=== PATIENT | male | born 1995 | race Caucasian/White ===

== ENCOUNTER 2017-07-05 16:34 | Emergency (ER) | payer SELFPAY ==
[2017-07-05 17:20] VITALS: BP 109/62
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
[2017-07-05] MEDS ORDERED: Cyclobenzaprine TAB* 10 MG PO ONE (19:24)
== END 2017-07-05 19:50 | disposition home or self-care (01) ==
LOC: UCEAST 16:34
DX: S29.012A Strain of muscle and tendon of back wall of thorax, initial encounter (principal); V49.09XA Driver injured in collision with other motor vehicles in nontraffic accident, initial encounter; Y92.410 Unspecified street and highway as the place of occurrence of the external cause
CPT/HCPCS: 72070; 99212; A9270-GY; G0463

== ENCOUNTER 2017-07-09 17:56 | Emergency (ER) | payer SELFPAY ==
--- NOTE | 2017-07-09 21:19 | RAD ---
INDICATION: Low back pain. COMPARISON: There are no prior studies available for comparison. TECHNIQUE: 5 views of the lumbar spine were obtained including lateral, oblique, AP and a coned-down lateral view of the lumbar sacral junction. FINDINGS: There is a mild lumbar scoliosis convex toward the left side. The vertebra are otherwise in normal alignment. Disc spaces appear maintained. IMPRESSION: MILD SCOLIOSIS, OTHERWISE UNREMARKABLE STUDY.
[2017-07-09] MEDS ORDERED: Dexamethasone TAB* 4 MG PO ONE (21:31)
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
[2017-07-09 21:45] VITALS: BP 130/70
== END 2017-07-09 21:44 | disposition home or self-care (01) ==
LOC: ED 17:56
DX: M54.6 Pain in thoracic spine (principal); M54.5 Low back pain; R20.2 Paresthesia of skin; Z88.1 Allergy status to other antibiotic agents
CPT/HCPCS: 72110; 99282; J8540

== ENCOUNTER 2018-01-16 12:53 | Emergency (ER) | payer SELFPAY ==
[2018-01-16 13:38] VITALS: BP 119/62
--- NOTE | 2018-01-16 14:37 | UC ---
Hand/Wrist HPI - HPI Summary HPI Summary: 22 yo male presents with left thumb pain, redness, and swelling at side of nail for the last 5 days getting progressively worse. Denies injury, but admits to biting his nails frequently. Denies fever or chills - History Of Current Complaint Chief Complaint: [place] Stated Complaint: SORE THUMB Time Seen by Provider: 01/16/18 14:36 Hx Obtained From: Patient Onset/Duration: Gradual Onset Severity Initially: Moderate Severity Currently: Moderate Pain Intensity: 5 Pain Scale Used: 0-10 Numeric - Allergies/Home Medications Allergies/Adverse Reactions: Allergies Allergy/AdvReac Type Severity Reaction Status Date / Time cefixime [From Suprax] Allergy anaph Verified 01/16/18 13:38 PMH/Surg Hx/FS Hx/Imm Hx - Additional Past Medical History Additional PMH: None Previously Healthy: Yes - Surgical History Surgical History: Yes Surgery Procedure, Year, and Place: HERNIA SURGERY - Family History Known Family History: Positive: None Negative: Cardiac Disease, Hypertension, Diabetes - Social History Occupation: Employed Full-time Lives: With Family Alcohol Use: None Substance Use Type: None Smoking Status (MU): Never Smoked Tobacco Review of Systems Constitutional: Negative Skin: Other - Left thumb redness and swelling Respiratory: Negative Cardiovascular: Negative Neurovascular: Negative Neurological: Negative Psychological: Negative All Other Systems Reviewed And Are Negative: Yes Physical Exam - Summary Physical Exam Summary: GENERAL: NAD. WDWN. No pain distress. SKIN: LEFT THUMB: ulnar aspect of nail-skin fold with moderate edema and erythema with TTP. White/green fluctuance. No streaking, bleeding, or drainage. NECK: Supple. Nontender. No lymphadenopathy. CHEST: No accessory muscle use. Breathing comfortably and in no distress. CV: Pulses intact MSK: Left thumb FROM. NEURO: Alert. CN II-XII grossly intact. PSYCH: Age appropriate behavior. Triage Information Reviewed: Yes Vital Signs: Initial Vital Signs Temp 98.6 F 01/16/18 13:35 Pulse 59 01/16/18 13:35 Resp 16 01/16/18 13:35 BP 119/62 01/16/18 13:35 Pulse Ox 100 01/16/18 13:35 Vital Signs Reviewed: Yes Procedures - Incision and Drainage Left Upper Finger Site: Left thumb nail Anesthesia: Other - None Instrument(s): Needle - 22G Hand/Wrist Course/Dx - Course Course Of Treatment: A time out was performed, witnessed, and signed. The area was cleansed with an alcohol pad. A 22G needle was used to malorie the paronychia. Copious purulent matter was able to be expressed. Pt tolerated well and experienced good relief. Thumb was bandaged with a band-aid. Rx for clindamycin. - Differential Dx/Diagnosis Provider Diagnoses: Left thumb paronychia Discharge - Sign-Out/Discharge Documenting (check all that apply): Patient Departure - Discharge Plan Condition: Stable Disposition: HOME Prescriptions: Clindamycin HCl 150 mg PO TID #15 capsule Patient Education Materials: Paronychia (ED) Forms: *Work Release Referrals: No Primary Care Phys,NOPCP [Primary Care Provider] - Additional Instructions: If you develop a fever, shortness of breath, chest pain, new or worsening symptoms - please call your PCP or go to the ED. - Billing Disposition and Condition Condition: STABLE Disposition: Home
== END 2018-01-16 15:00 | disposition home or self-care (01) ==
LOC: UCEAST 12:53
DX: L03.012 Cellulitis of left finger (principal); Z88.1 Allergy status to other antibiotic agents
CPT/HCPCS: 10060; 99212; G0463

== ENCOUNTER 2019-07-08 15:18 | Emergency (ER) | payer SELFPAY ==
[2019-07-08 16:45] LABS: Rapid Strep Molecular Positive (Negative)
[2019-07-08 16:54] LABS: Influenza A Molecular Negative (Negative); Influenza B Molecular Negative (Negative)
[2019-07-08] MEDS ORDERED: Clindamycin 600 MG/D5W BAG(*) 600 MG/50 ML BAG IV ONE (17:23)
[2019-07-08] MEDS ORDERED: methylPREDNISolone 125 MG* 2 ML VIAL IV ONE (17:24)
--- NOTE | 2019-07-08 17:25 | CONSULT ---
Consult Consult: This is an attending supervisory note. I evaluated this patient with he and sudden physician or assistant. Please see his dictated note. Briefly, this is a 23-year-old male who for the past 4 days is had a sore throat and fever, with most pain on the left side of his throat. She has deric-tonsillar enlargement, no trismus, his voice is somewhat distorted there is no displacement of the uvula. No sublingual erythema. There is left side anterior cervical chain lymphadenopathy. Plan for IV steroids, IV antibiotics, CT imaging for procedural guidance, likely needle drainage in ED tonight. Concerning symptoms patient reports some inability to tolerate liquids. He does not appear clinically dry.
--- NOTE | 2019-07-08 17:28 | ED ---
Throat Pain/Nasal Congestion - HPI Summary HPI Summary: 23-year-old male documented past medical history presents to the emergency department today complaining of sore throat, fevers, dysphagia, muffled voice which began approximately 5 days ago on 07/03/19. Patient states his symptoms have progressively become worse and decided to come in for evaluation today as he is having difficulty speaking, eating, drinking. Patient otherwise feels well and denies rash, blood with urination, inability to open his mouth. Patient denies recent recreational drug use or alcohol use. Patient denies chest pain, abdominal pain, pain with urination, rash, shortness of breath, dental pain. Family history and surgical history noncontributory. - History of Current Complaint Chief Complaint: EDThroatPain Time Seen by Provider: 07/08/19 16:54 Hx Obtained From: Patient, Family/Featherer - Patient's fiance. Onset/Duration: Gradual Onset Severity: Severe Associated Signs And Symptoms: Positive: Dysphagia, Hoarseness. Negative: FB Sensation, Drooling Cough: None - Allergies/Home Medications Allergies/Adverse Reactions: Allergies Allergy/AdvReac Type Severity Reaction Status Date / Time cefixime [From Suprax] Allergy anaph Verified 07/08/19 15:21 PMH/Surg Hx/FS Hx/Imm Hx Endocrine/Hematology History: Denies: Hx Diabetes Cardiovascular History: Denies: Hx Congestive Heart Failure, Hx Hypertension History: Denies: Hx Renal Disease Neurological History: Denies: Hx Headaches Psychiatric History: Denies: Hx Eating Disorder, Hx of Violent Episodes Against Others - Surgical History Surgery Procedure, Year, and Place: HERNIA SURGERY Infectious Disease History: No Infectious Disease History: Denies: Traveled Outside the [place] in Last 30 Days - Family History Known Family History: Positive: None Negative: Cardiac Disease, Hypertension, Diabetes - Social History Alcohol Use: None Substance Use Type: Reports: None Hx Tobacco Use: No Smoking Status (MU): Never Smoked Tobacco Review of Systems Positive: Fever. Negative: Fatigue Eyes: Negative Positive: Sore Throat. Negative: Dental Pain, Nasal Discharge Cardiovascular: Negative Respiratory: Negative Gastrointestinal: Negative Genitourinary: Negative Musculoskeletal: Negative Skin: Negative Neurological: Negative Psychological: Normal All Other Systems Reviewed And Are Negative: Yes Physical Exam - Summary Physical Exam Summary: Inspection of the mucosa reveals no vesicles or lesions. Inspection the posterior pharynx shows erythema, significant swelling greater on the left side with mild uvular deviation. Patient has mild trismus and a muffled voice. Physical exam is consistent with peritonsillar abscess. Patient has now come to mind the airway and is able to manage secretions. Patient will open his mouth and speak. Triage Information Reviewed: Yes Vital Signs On Initial Exam: Initial Vitals Temp Pulse Resp BP Pulse Ox 99.1 F 109 20 138/84 96 07/08/19 15:21 07/08/19 15:21 07/08/19 15:21 07/08/19 15:21 07/08/19 15:21 Vital Signs Reviewed: Yes Appearance: Positive: Well-Appearing, No Pain Distress, Well-Nourished Skin: Positive: Warm, Skin Color Reflects Adequate Perfusion Eyes: Positive: EOMI, MATTHEW ENT: Positive: Hearing grossly normal Respiratory/Lung Sounds: Positive: Clear to Auscultation, Breath Sounds Present Cardiovascular: Positive: RRR, S1, S2 Musculoskeletal: Positive: Strength/ROM Intact Neurological: Positive: Sensory/Motor Intact, Alert, Oriented to Person Place, Time, Normal Gait, Speech Normal Psychiatric: Positive: Normal, Affect/Mood Appropriate AVPU Assessment: Alert Procedures - Sedation Patient Received Moderate/Deep Sedation with Procedure: No Diagnostics - Vital Signs Vital Signs Temp Pulse Resp BP Pulse Ox 07/08/19 15:21 99.1 F 109 20 138/84 96 - Laboratory Lab Results: Lab Results 07/08/19 07/08/19 Range/Units 15:54 15:54 Influenza A (Rapid) Negative (Negative) Influenza B (Rapid) Negative (Negative) Group A Strep Rapid Positive A (Negative) Result Diagrams: 07/08/19 17:34 07/08/19 17:34 Lab Statement: Any lab studies that have been ordered have been reviewed, and results considered in the medical decision making process. EENT Course/Dx - Course Course Of Treatment: Patient was evaluated in the ED for sore throat for 5 days. Patient's exam and his vitals are stable and he is afebrile. Flu negative, group a strep positive for throat culture. Patient diagnosed with streptococcal pharyngitis. On exam there appears to be a left-sided peritonsillar abscess secondary to streptococcal pharyngitis. Patient was given an IV as well as 125 mg of methylprednisone and clindamycin. CT soft tissue of the neck with contrast was performed which showed left-sided mucosal thickening of the pharyngeal mucosal space at the level of the oropharynx, oral cavity and hypopharynx and included asymmetric prominence of the left pontine tonsil. Suspicious for left-sided pharyngitis and tonsillitis. Is a central nonenhancing region and the left palatine tonsil measuring a maximum of 2.5 cm suspicious for left tonsillar abscess. No evidence of retropharyngeal abscess. Laboratory results returned showing 20.5 white blood cells significant for leukocytosis with a left shift. CRP is elevated at 187.36. Influenza negative , pharyngeal group A strep positive. Patient has streptococcal pharyngitis with secondary peritonsillar abscess. Patient was given IV clindamycin and solumedrol. Patient's symptoms improved significantly after these medications. Is explained to the patient that hospitalization is recommended for airway observation until he may see an ears nose and throat doctor area patient declined and left the emergency department AGAINST MEDICAL ADVICE. Patient was given prescription for clindamycin and prednisone to be taken and he is to follow-up with ears nose and throat tomorrow. - Differential Diagnoses Differential Diagnoses: Dental Abscess, Francisco J's Angina, Peritonsillar Ulcer, Pharyngitis - Diagnoses Provider Diagnoses: Acute streptococcal pharyngitis, Peritonsillar abscess Discharge ED - Sign-Out/Discharge Documenting (check all that apply): Patient Departure - Discharge Plan Condition: Stable Disposition: AGAINST MEDICAL ADVICE Prescriptions: Clindamycin Cap(NF) [Clindamycin Cap 300 mg Cap(NF)] 300 mg PO Q6H 7 Days #28 cap predniSONE 50 mg TAB [Deltasone 50 mg TAB] 50 mg PO DAILY #4 tab Patient Education Materials: Peritonsillar Abscess (ED) Referrals: No Primary Care Phys,NOPCP [Primary Care Provider] - Morteza Huerta MD [Medical Doctor] - 1 Day Additional Instructions: You were diagnosed with a peritonsillar abscess in the emergency department today. Please follow-up with ENT tomorrow morning or as soon as possible. Please return to the emergency department immediately if you develop any new or worsening symptoms. Please take clindamycin 300 mg 3 times daily for 7 days. Please also take prednisone 50 mg for 4 days. Please call ENT tomorrow morning to schedule an appointment. - Billing Disposition and Condition Condition: STABLE Disposition: Against Medical Advice
[2019-07-08 17:42] LABS: Hematocrit 41 % (42-52); Hemoglobin 14.7 g/dL (14.0-18.0); Mean Corpuscular HGB Conc 35 g/dL (31-36); Mean Corpuscular Hemoglobin 30 pg (27-31); Mean Corpuscular Volume 85 fL (80-94); Mean Platelet Volume 7.2 fL (7.4-10.4); Platelet Count 256 10^3/uL (150-450); Red Blood Count 4.86 10^6 /uL (4.18-5.48); Red Cell Distribution Width 13 % (10-15); White Blood Count 20.5 10^3/uL (3.5-10.8)
[2019-07-08 17:43] LABS: ABS Basophils 0.1 10^3/ul (0-0.2); ABS Eosinophils 0.1 10^3/ul (0-0.6); ABS Lymphocytes 1.3 10^3/ul (1.0-4.8); ABS Monocytes 2.3 10^3/ul (0-0.8); ABS Neutrophils 16.8 10^3/ul (1.5-7.7); Eosinophil % 0.6 %; Lymphocyte % 6.2 %
[2019-07-08 18:08] LABS: Albumin 4.6 g/dL (3.2-5.2); Albumin/Globulin Ratio 1.2 (1-3); BUN/Creatinine Ratio 14.1 (8-20); C Reactive Protein 187.36 mg/L (<8.01); Calcium 10.2 mg/dL (8.6-10.3); EGFR Non-African American 110.7 (>60); Globulin 3.9 g/dL (2-4); Potassium 3.9 mmol/L (3.5-5.0); Total Bilirubin 1.2 mg/dL (0.2-1.0); Total Protein 8.5 g/dL (6.4-8.9)
[2019-07-08] MEDS ORDERED: Iohexol 300* (CONTRAST) 10 ML SDV IV ONE (18:11)
[2019-07-08 20:56] VITALS: BP 134/78
== END 2019-07-08 20:55 | disposition left against medical advice (07) ==
LOC: ED 15:18
DX: J02.0 Streptococcal pharyngitis (principal); Z88.1 Allergy status to other antibiotic agents
CPT/HCPCS: 36415; 70491; 80053; 85025; 86140; 87651; 96365; 96375; 99284; J2930; Q9967